=== PATIENT | female | born 1985 | race Caucasian/White ===

== ENCOUNTER 2024-12-25 08:32 | Day surgery (SDC) | payer OTHER ==
[2024-12-25 09:43] VITALS: BMI 26.6
[2024-12-25 09:50] LABS: MCHC 32.1 g/dl (32.2-35.5); MEAN CELL VOLUME 93.6 fl (79.4-94.8); MEAN PLT VOLUME 9.4 fl (9.4-12.3); RDW 13.6 % (12.1-16.8)
[2024-12-25 10:11] LABS: ALK PHOS 36.0 U/L (45-117); CO2 25.0 mmol/L (21-32); CREATININE 0.8 mg/dl (0.6-1.3); GLUCOSE,RANDOM 97.0 mg/dl (74-106); SGOT/AST 18.0 U/L (15-37); SGPT/ALT 16.0 U/L (7-52); TOT PROT 6.4 g/dl (6.4-8.2)
[2024-12-25 12:38] VITALS: TEMP 97.2
[2024-12-25 12:50] VITALS: RESP 18
[2024-12-25 13:13] VITALS: BP 122/84; PULSE 72
== END 2024-12-25 14:04 | disposition home or self-care (01) ==
LOC: FECT 08:32
PROVIDERS: ATTEND Student in an Organized Health Care Education/Training Program
PROC: GZB4ZZZ Other Electroconvulsive Therapy (ICD-10-PCS; principal; 2024-12-25 11:51)
DX: F31.63 Bipolar disorder, current episode mixed, severe, without psychotic features (principal)
CPT/HCPCS: 36415; 80053; 81025; 85027; 90870; 93005; 94760

== ENCOUNTER 2024-12-28 09:44 | Day surgery (SDC) | payer OTHER ==
[2024-12-25 15:28] VITALS: BMI 26.6
[2024-12-28 13:35] VITALS: BP 108/69; PULSE 74; RESP 16; TEMP 97.9
== END 2024-12-28 13:51 | disposition home or self-care (01) ==
LOC: FECT 09:44
PROVIDERS: ATTEND Student in an Organized Health Care Education/Training Program
PROC: GZB4ZZZ Other Electroconvulsive Therapy (ICD-10-PCS; principal; 2024-12-28 12:37)
DX: F31.63 Bipolar disorder, current episode mixed, severe, without psychotic features (principal)
CPT/HCPCS: 90870; 94760

== ENCOUNTER 2025-01-28 10:58 | Day surgery (SDC) | payer OTHER ==
[2025-01-27 07:52] VITALS: BMI 26.6
[2025-01-28 11:33] VITALS: RESP 16
[2025-01-28 13:20] VITALS: PULSE 66; TEMP 99.4
[2025-01-28 14:09] VITALS: BP 110/76
== END 2025-01-28 14:00 | disposition home or self-care (01) ==
LOC: FECT 10:58
PROVIDERS: ATTEND Student in an Organized Health Care Education/Training Program
PROC: GZB4ZZZ Other Electroconvulsive Therapy (ICD-10-PCS; principal; 2025-01-28 12:03)
DX: F31.9 Bipolar disorder, unspecified (principal)
CPT/HCPCS: 90870; 94760

== ENCOUNTER 2025-02-02 11:34 | Day surgery (SDC) | payer OTHER ==
[2025-02-01 06:51] VITALS: BMI 26.6
[~2025-02-02 11:34] MED LIST: LACTATED RINGERS SOLUTION 1,000 ML IV SCH; ONDANSETRON 4 MG/2 ML VIAL IVPUSH PRN
[2025-02-02 13:19] VITALS: RESP 18; TEMP 98.1
[2025-02-02 13:57] VITALS: BP 122/70; PULSE 96
== END 2025-02-02 13:50 | disposition home or self-care (01) ==
LOC: FECT 11:34
PROVIDERS: ATTEND Student in an Organized Health Care Education/Training Program
PROC: GZB4ZZZ Other Electroconvulsive Therapy (ICD-10-PCS; principal; 2025-02-02 12:27)
DX: F31.63 Bipolar disorder, current episode mixed, severe, without psychotic features (principal)
CPT/HCPCS: 81025; 90870; 94760